=== PATIENT | male | born 1965 | race Caucasian/White ===

== ENCOUNTER 2016-05-14 18:30 | Emergency (ER) | payer SELFPAY ==
--- NOTE | ~2016-05-14 | ER ---
[facility] AGE[facility] 50 Y [address] ROOM: [place] [address] LOCATION: [facility] ADMIT DATE: 05/14/2016 ER/Outpatient Report DISCHARGE DATE: 05/14/2016 FAMILY PHYSICIAN: Physician, Unknown ATTENDING PHYSICIAN: Christoph Denny Admission date and time documented in the medical record. I saw the patient at 1845 hours. CHIEF COMPLAINT: Medical clearance for [facility] inpatient, acute alcohol intoxication, suicidal ideation, suicidal threats. HISTORY OF PRESENT ILLNESS: This patient is a 50-year-old male, who was brought to the emergency department by [facility] for medical clearance. The patient has been drinking alcohol, he is acutely intoxicated. He does have a history of alcohol abuse. The patient has been having suicidal ideation and suicidal threats. The patient has been an inpatient at [facility] in the past for similar problems. The patient denies any recent cold, coughs, flus, fever, chills, or sweats. No headache, eyes, ears, nose, throat, neck, or spine pain. No chest pain, shortness of breath. No abdominal pain, nausea, vomiting, diarrhea, or urinary frequency, urgency, or dysuria. No joint or muscle swelling, redness, or pain. No skin eruptions or rashes. Does have a history of suicidal ideation and suicidal threats. No other neuro problems, psych issues, endocrine problems. HOME MEDICATIONS: None. ALLERGIES: NONE. SOCIAL HISTORY: The patient smokes a pack a day. Drinks vodka daily. SIGNIFICANT PAST MEDICAL HISTORY: Tobacco abuse, alcohol abuse, suicidal threats, and ideation. OPERATIONS: Foot surgery. REVIEW OF SYSTEMS: All systems reviewed by me are negative with the exception of those discussed in the history of present illness. PAT[facility]'S NAME[facility] AGE: 50 Y [address] ROOM: [place] [address] LOCATION: [facility] ADMIT DATE: 05/14/2016 ER/Outpatient Report DISCHARGE DATE: 05/14/2016 FAMILY PHYSICIAN: Physician, Unknown ATTENDING PHYSICIAN: Christoph Denny PHYSICAL EXAMINATION: VITAL SIGNS: Temperature 97 tympanic, pulse 100, respirations 20, blood pressure 140/98, O2 saturation on room air is 96%. HEAD: Normocephalic. No abrasion, contusion, laceration, swelling of the scalp or face. EYES: Extraocular muscles intact. PERRL. Conjunctivae injected bilaterally. EARS: Clear TMs bilaterally. NOSE: Clear. THROAT: Clear. Mucous membranes moist. NECK: No nuchal rigidity. No thyromegaly or cervical adenopathy. LUNGS: Clear. Good air flow. No rales, rhonchi, or wheezes. HEART: Regular. Pulses are palpable. ABDOMEN: Soft, nondistended, nontender. Good bowel tones. No organomegaly or abnormal mass palpable. EXTREMITIES: No peripheral edema, cyanosis, or deformity. NEUROVASCULAR: Intact. The patient is acutely intoxicated. SKIN: Clear. LABORATORY DATA AND X-RAYS: Urine drug screen was negative. CMS was normal except for a low calcium of 8.3, elevated AST of 49. Medical blood alcohol was elevated at 0.334. Serum acetaminophen and salicylate levels were normal. TSH was 0.418. Urinalysis was clear. White count was 5100, 69 segs, 17 lymphs, 12 monos, hemoglobin 16.8, hematocrit 49.2, platelet count was 135,000. EMERGENCY DEPARTMENT COURSE: I did give the patient IV banana bag, IV normal saline fluids, along with Zofran 4 mg IV in the emergency department for nausea and vomiting. IMPRESSION: 1. Medical clearance for [facility] inpatient treatment. 2. Acute alcohol intoxication and alcohol abuse. 3. Suicide ideation, suicidal threats. PLAN: The patient was transferred by [facility] from [facility] to [facility] for inpatient treatment. CHRISTOPH DENNY MD SDS/modl PATIENT'S NAME: MARCELLE LACKEY [facility] AGE: 50 Y [address] ROOM: [place] [address] LOCATION: [facility] ADMIT DATE: 05/14/2016 ER/Outpatient Report DISCHARGE DATE: 05/14/2016 FAMILY PHYSICIAN: Physician, Unknown ATTENDING PHYSICIAN: Christoph Denny /[id number] d: 05/15/16 0149 t: 05/21/16 0613, OUTPATIENT REPORT
--- NOTE | ~2016-05-14 | PN ---
PATIENT'S NAME: MARCELLE LACKEY [facility] AGE: 50 Y [address] ROOM: [place] [address] LOCATION: [facility] ADMIT DATE: 05/14/2016 [facility] Progress Notes DISCHARGE DATE: 05/14/2016 FAMILY PHYSICIAN: PHYSICIAN, UNKNOWN ATTENDING PHYSICIAN: Christoph Denny DATE OF SERVICE: 05/18/2016 DATA COLLECTION: The patient was seen [id number] today. The case was discussed with our nursing staff for collateral information and coordination of care. INTERVAL HISTORY: Per nursing report, the patient is still AWAS and has been refusing medications. CD evaluation is still pending. During the interview, the patient states that he feels a little depressed and anxious only because of the fact that he is here in the hospital. He denies significant anger. Again, he admits that he has significant cravings for alcohol and he is willing to try a medication to help him with cravings. He again improvised that in the past he was using alcohol to self-medicate for depression and anxiety. He slept well last night and he has been eating well, has been attending groups. He has no significant physical complaints. His vital signs are good. MENTAL STATUS EXAMINATION: He is fully alert and oriented. No significant psychomotor agitation or retardation except for slight fine tremors to bilateral hands. He is cooperative and maintains good eye contact during the interview. His hygiene is fair and he is appropriately groomed. Speech is clear and coherent with normal rate and volume. Mood is a bit anxious. Affect is mood congruent. Thought process is logical and goal oriented. Content is devoid of suicidal or homicidal ideation. Denies hallucinations. No delusional thoughts. Memory and overall cognitive functioning are fair. Insight and judgment are fair. DIAGNOSES: 1. Major depressive disorder, recurrent without psychotic features. 2. Alcohol use disorder. PLAN: Discussed medication options for alcohol cravings. We settled on naltrexone. Possible side effects, risks, and benefits of treatment with naltrexone are discussed in the case that he should be able to afford the medication. Revealed his blood work results including AST and ALT. Discussed at length positive coping skills. We are still waiting for CD evaluation. We will [facility] AGE: 50 Y [address] ROOM: [place] [address] LOCATION: [facility] ADMIT DATE: 05/14/2016 [facility] Progress Notes DISCHARGE DATE: 05/14/2016 FAMILY PHYSICIAN: , UNKNOWN ATTENDING PHYSICIAN: Christoph Denny discontinue AWAS. EPC will be continued. We will continue work on discharge planning. MILLY PARKS/idalia /[id number] d: t: 05/18/16 1222, PROGRESS NOTES
[2016-05-14 19:11] LABS: BASOPHIL # 0.1 K/uL (0.0-0.2); EOSINOPHIL % 0.2 %; HEMATOCRIT 49.2 % (37.0-53.0); HEMOGLOBIN 16.8 g/dL (12.0-17.0); IMMATURE GRANULOCYTE % 0.2 %; LYMPHOCYTE # 0.9 K/uL (0.8-4.0); LYMPHOCYTE % 17.4 %; MCH 31.6 pg (27.0-34.0); MCHC 34.1 gm/dL (32.0-36.5); MCV 92.7 fl (83.0-98.0); MONOCYTE # 0.6 K/uL (0.0-1.0); MONOCYTE % 12.1 %; MPV 9.9 fl (9.4-12.4); NEUTROPHIL # (ANC) 3.5 K/uL (1.4-9.0); NEUTROPHIL % 69.1 %; NRBC % 0 /100WBC (0-0.00); RBC 5.31 M/uL (4.00-6.00); RDW-CV 14.3 % (11.9-14.6); WBC 5.1 K/uL (4.0-11.0)
[2016-05-14 19:21] LABS: BILIRUBIN URINE NEGATIVE (NEGATIVE); BLOOD URINE NEGATIVE /UL (NEGATIVE); GLUCOSE URINE NEGATIVE (NEGATIVE); KETONE URINE NEGATIVE (NEGATIVE); LEUKOCYTES URINE NEGATIVE /UL (NEGATIVE); NITRITE URINE NEGATIVE (NEGATIVE); PROTEIN URINE NEGATIVE (NEGATIVE); UROBILINOGEN URINE NORMAL (NORMAL)
[2016-05-14 19:22] LABS: PLATELET COUNT 135 K/uL (150-450)
[2016-05-14 19:24] LABS: COLOR URINE YELLOW (YELLOW); TURBIDITY URINE CLEAR (CLEAR)
[2016-05-14 19:32] LABS: ALBUMIN 3.5 gm/dL (3.5-5.0); ALK PHOS 64 IU/L (33-138); ALT 47 IU/L (12-78); ANION GAP 17.7 (10.0-19.0); AST 49 IU/L (10-40); BLOOD UREA NITROGEN 12 mg/dL (6-24); CALCIUM 8.3 mg/dL (8.5-10.5); CHLORIDE 106 mMol/L (96-110); CO2 24 mMol/L (22-32); CREATININE 0.9 mg/dL (0.6-1.3); ESTIMATED GFR (MDRD EQUATION) > 60; POTASSIUM 3.7 mMol/L (3.7-5.1); SODIUM 144 mMol/L (135-145); TOTAL PROTEIN 7.3 g/dL (6.0-8.4)
[2016-05-14 19:33] LABS: TOTAL BILIRUBIN 0.3 mg/dL (0.0-1.5)
[2016-05-14 19:41] LABS: AMPHETAMINE NEGATIVE (NEGATIVE); BARBITURATE NEGATIVE (NEGATIVE); COCAINE NEGATIVE (NEGATIVE); OPIATES NEGATIVE (NEGATIVE)
[2016-05-21] MEDS ORDERED: PROZAC20 MG PO (09:00)
[2016-05-21] MEDS ORDERED: TREXAN (REVIA)50 MG PO (09:18)
[2016-05-21] MEDS ORDERED: NICOTINE PATCH1 EAC1 PO (09:20)
[2016-09-07] MEDS ORDERED: REMERON 30 MG30 MG PO (14:04)
[2016-09-07] MEDS ORDERED: VISTARIL50 MG PO (14:06)
[2016-09-07] MEDS ORDERED: ACAMPROSATE CA333 MG PO (14:11)
== END 2016-05-14 20:08 | disposition disaster alternative care site (69) ==
LOC: GMED 18:30
PROVIDERS: Emergency Medicine
DX: F10.129 Alcohol abuse with intoxication, unspecified (principal); R45.851 Suicidal ideations; F17.210 Nicotine dependence, cigarettes, uncomplicated
CPT/HCPCS: G0480; J2405; J3411; J7030

== ENCOUNTER 2016-08-27 21:33 | Inpatient (IN) | payer SELFPAY ==
[~2016-08-27] VITALS: Ht 175.3 cm; Wt 81.3 kg
--- NOTE | ~2016-08-27 | DS ---
PATIENT'S NAME: MARCELLE LACKEY [facility] AGE: 50 Y [address] ROOM: [place] [address] LOCATION: [facility] ADMIT DATE: 08/27/2016 Discharge Summary DISCHARGE DATE: 08/31/2016 FAMILY PHYSICIAN: PHYSICIAN, YOLANDE ATTENDING PHYSICIAN: Manolo Sorto PRIMARY DIAGNOSES FOR THIS HOSPITALIZATION: 1. Alcohol withdrawal. 2. Acute alcohol intoxication. 3. Depression. 4. Suicidal ideations with a non-damaging attempt. SUMMARY OF HOSPITALIZATION: The patient is a 50-year-old male with a longstanding history of depression and alcohol abuse who broke up with his girlfriend several weeks prior to admission. He subsequently had suicidal ideations and even cut around his left cheek and jaw area without any significant injuries. He was admitted to [facility] with acute alcohol intoxication and withdrawal. He was placed under Emergent Protective Custody. He was admitted to the hospital with 24 hours one-to-one observation for self-harm. He was detoxified from alcohol with signs of [id number] withdrawal. He was placed on thiamine, folate, and multivitamins for his chronic alcoholism. His symptoms of withdrawal improved, but his depression continued to be profound. Today, the patient still has very mild withdrawal and is on a Librium taper. He volunteers no complaints. He will be transferred to [facility] under EPC. Time dedicated to this patient's encounter is 15 minutes. MD JOSEPH KANG/idalia /[id number] d: 09/01/16 0248 t: 09/07/16 2313, DISCHARGE SUMMARY
--- NOTE | ~2016-08-27 | HP ---
PATIENT'S NAME: MARCELLE LACKEY [facility] AGE: 50 Y [address] ROOM: [place] [address] LOCATION: [facility] ADMIT DATE: 08/27/2016 History & Physical DISCHARGE DATE: FAMILY PHYSICIAN: PHYSICIAN, UNKNOWN ATTENDING PHYSICIAN: YOSELIN MEDINA DATE OF SERVICE: CHIEF COMPLAINT: Suicidal ideation and attempt and also alcohol intoxication. HISTORY OF PRESENT ILLNESS: This is a 50-year-old male who has a longstanding history of alcohol, cigarette, and depression disorder. The story is that the patient recently broke up with his girlfriend about 5 weeks ago and he has become even more depressed. He already drinks alcohol everyday, but since he broke up with his girlfriend, he has been drinking more heavily for the last 5 weeks. He now drinks on a daily basis about 2 bottles of vodka. His last drink was last night. He says that about 2 days ago, he tried to use a knife to slit his own throat, but he was afraid to do so at the end; so, he only did some minor cuts around his left cheek/jaw area. Today, his children stopped by to see him and they found him drinking again so they called 911 to get him some help with his alcohol problem, the plan was to bring him to [facility] but just came here for medical clearance. Due to his alcohol intoxication and high risk of alcohol withdrawal, patient was admitted for further care. Currently patient denies suicidal thoughts or plans. REVIEW OF SYSTEMS: As mentioned in the history of present illness. All other systems were reviewed and they were negative except those mentioned in the history of present illness. PAST MEDICAL HISTORY: 1. Alcohol use disorder. 2. Cigarette use disorder. 3. Suicidal attempt and ideation in the past. 4. Depression. ALLERGIES: NONE, ACCORDING TO THE PATIENT. HOME MEDICATIONS: The patient says that he does not take any home medication. PAST SURGICAL HISTORY: PATIENT'S NAME: MARCELLE LACKEY [facility] AGE: 50 Y [address] ROOM: [address] [address] LOCATION: [facility] ADMIT DATE: 08/27/2016 History & Physical DISCHARGE DATE: FAMILY PHYSICIAN: PHYSICIAN, UNKNOWN ATTENDING PHYSICIAN: YOSELIN MEDINA Left ankle surgery in the past. FAMILY HISTORY: Father has some kind of heart problem, but he is not sure about the details. Mother has type 2 diabetes. SOCIAL HISTORY: The patient is active cigarette smoker about 2 packs per day for the last 35 years. The patient also drinks alcohol on a daily basis for many years about 2 bottles of vodka per day and last drink was last night. He denies any illegal drug use. PHYSICAL EXAMINATION: VITAL SIGNS: At the time of my dictation, temperature 98, heart rate 80, respirations 22, blood pressure 143/78, and saturation 97% on room air. GENERAL APPEARANCE: Alert and oriented x3. The patient is mildly restless moving around on the bed. HEENT: Pupils equally round and reactive to light. Extraocular muscles intact. Anicteric sclerae. Nasal turbinates are normal bilaterally. Moist oral mucosa. NECK: No JVD. CARDIOVASCULAR: Regular rate and rhythm. Normal S1, S2. No murmur, no rubs, no gallops. RESPIRATORY: Clear. No rhonchi, no wheezing, no crackles, no rales. ABDOMEN: Soft, nontender, nondistended, bowel sounds present, no hepatosplenomegaly. No mass. Bowel sounds present. EXTREMITIES: No edema in upper or lower extremities. SKIN: He does have some laceration on the left-side of the face around the left jaw area. It does not look infected. It is very superficial minor cut. NEUROLOGICAL: Grossly nonfocal except that the patient does have a positive asterixis. LABORATORY DATA: White blood cells 4.1, hemoglobin 14.9, hematocrit 41.5, and platelet 131. Glucose 132, BUN 10, creatinine 0.9, sodium 140, potassium 3.9, chloride 106, CO2 20, calcium 8.8, total protein 6.9, albumin 3.4, AST 68, ALT 109, alkaline phosphatase 59, total bilirubin 0.3, anion gap 17.9, and GFR more than 60. Urinalysis negative for UTI. Urine drug screen, all negative. Alcohol level 0.221. Tylenol level less than 2. Aspirin level less than 2.8. TSH 1.1. IMAGING STUDIES: None at the moment. ASSESSMENT AND PLAN: 1. Regarding his suicidal ideation and attempt: Consult Psychiatry. PATIENT'S NAME: MARCELLE LACKEY [facility] AGE: 50 Y [address] ROOM: [address] [place] [id number] LOCATION: [facility] ADMIT DATE: 08/27/2016 History & Physical DISCHARGE DATE: FAMILY PHYSICIAN: PHYSICIAN, UNKNOWN ATTENDING PHYSICIAN: YOSELIN MEDINA Suicidal precaution. One-on-one sitter in the room at all times. Further plan will depend on clinical course. 2. Regarding his alcohol intoxication: He is at high-risk of alcohol withdrawal, start him on CIWA protocol. Intravenous fluids with intravenous banana bag followed by normal saline. Further plan will depend on clinical course. 3. Regarding his transaminitis: This is alcohol induced in the setting of longstanding alcohol intake. I will trend the liver function test again tomorrow. The patient does not meet the criteria for alcoholic hepatitis and also does not meet the criteria for steroids use. His ALT is higher than AST. Continue supportive care as mentioned before for alcohol withdrawal. 4. Regarding his nicotine dependence: Start him on the nicotine patch 21 g transdermal daily. 5. Regarding his depression: Psychiatric consult tomorrow. 6. Regarding his lipase elevation: It is alcohol induced but not high enough to meet the definition of pancreatitis. Continue supportive care with iv fluids. 6. Deep vein thrombosis prophylaxis: He will be on Lovenox subcutaneous. 7. He is a DNR/DNI. Time spent in care on the day of admission 45 minutes, where 25 minutes was spent on counseling by going over the plan of care and also addressing all the questions and concerns of the patient to his satisfaction. The remainder of the time was spent on interview and physical examination and also on chart review. Further plan will depend on clinical course. YOSELIN MEDINA MD CC/colel /[id number] D: 509 T: 550 HISTORY & PHYSICAL
--- NOTE | ~2016-08-27 | ER ---
PATIENT'S NAME: MARCELLE LACKEY [facility] AGE: 50 Y [address] ROOM: [address] [place], [place] [address] [place] [facility] [place] DATE: 08/27/2016 ER/Outpatient Report DISCHARGE DATE: FAMILY PHYSICIAN: PHYSICIAN, UNKNOWN ATTENDING PHYSICIAN: YOSELIN MEDINA Admission date and time documented on the medical record. I saw the patient at 2140 hours. CHIEF COMPLAINT: Acute alcohol intoxication, alcohol abuse, medical clearance. HISTORY OF PRESENT ILLNESS: This patient is a 50-year-old male, who is brought to the emergency room by [facility] for medical clearance and EPC to [facility]. The patient is acutely intoxicated and has a history of chronic alcohol abuse. He had a 2.2 Breathalyzer. The patient did try to harm himself by scratching his facial cheek and chin. He does have obvious scratches, self-inflicted. The patient states he has insomnia and unable to sleep over the past few days. Denies any illicit drug use. He does smoke 2 to 3 three packs cigarettes a day. He drinks about 2 bottles of vodka a day. He denies suicidal ideation at this time, although has had suicidal threats and ideation in the past and looks like that he has been having these recently also. Denies any chest pain, shortness of breath, abdominal pain. No nausea, vomiting, diarrhea, or urinary complaints. No fall or trauma. No recent colds, coughs, flus, fever, chills, or sweats. No lightheadedness, dizziness, syncope, or near syncope. No joint or muscle swelling, redness, or pain. No skin eruptions or rash. No history of neuro changes or endocrine problems. He does have suicidal ideation and threats by history with his tobacco and alcohol abuse. REVIEW OF SYSTEMS: All systems reviewed by me are negative with the exception of those discussed in the history of present illness. PHYSICAL EXAMINATION: VITAL SIGNS: Temperature 98.3 tympanic, pulse 105, respirations 19, blood pressure 139/87, O2 saturation on room air is 96%. HEAD: Normocephalic. EYES, EARS, NOSE, THROAT: Clear. Breath smells of alcoholic beverage. Mucous membranes moist. NECK: No nuchal rigidity. No thyromegaly or cervical adenopathy. SPINE: Negative. LUNGS: Clear. Good air flow. No rales, rhonchi, or wheezes. HEART: Regular. Pulses are palpable. No chest wall or ribcage pain to palpation. PATIENT'S NAME: MARCELLE LACKEY [facility] AGE: 50 Y [address] ROOM: [address] [address] [place] [facility] [place] DATE: 08/27/2016 ER/Outpatient Report DISCHARGE DATE: FAMILY PHYSICIAN: PHYSICIAN, UNKNOWN ATTENDING PHYSICIAN: YOSELIN MEDINA ABDOMEN: Flat, soft, nondistended, nontender. Active bowel tones. No organomegaly or abnormal mass palpable. PELVIS: Stable. EXTREMITIES: No peripheral edema, cyanosis, or deformity. NEUROVASCULAR: Intact. SKIN: Clear. No skin eruptions or rash. The patient does have scratch tran on both facial cheeks and his chin. LABORATORY DATA AND X-RAYS: CBC showed a white count of 4100, 52 segs, 34 lymphs, 12 monos, 1 eo, 1 baso, hemoglobin is 14.9 with hematocrit of 41.5, platelet count is 131,000. CMS was normal except for a low CO2 content of 20, elevated glucose 132, elevated AST of 68, elevated ALT of 109. Medical blood alcohol was 0.221. Serum acetaminophen and salicylate levels were normal. TSH was 1.16. Urinalysis showed 0 to 2 whites, negative reds, rare epithelial cells, rare bacteria, 1+ mucus, 2+ amorphous material, negative nitrites on dipstick. Urine drug screen was negative. IMPRESSION: 1. Medical clearance, EPC to [facility]. 2. Acute alcohol intoxication and alcohol abuse. 3. Tobacco abuse. 4. Suicide ideation threats with self-inflicted scratches to his facial cheeks and chin. PLAN: Discussed the patient with Dr. Medina, hospitalist, who will admit the patient to the hospital for detox, and he will need inpatient treatment at [facility] possibly tomorrow. MD RADHA MEJIAS/idalia /[id number] d: 08/28/162 t: 08/28/16 1808, OUTPATIENT REPORT
[~2016-08-27 21:33] MED LIST: NICOTINE PATCH1 EAC1 PO; PROZAC20 MG PO; TREXAN (REVIA)50 MG PO
[2016-08-27 22:17] LABS: BILIRUBIN URINE NEGATIVE (NEGATIVE); BLOOD URINE NEGATIVE /UL (NEGATIVE); COLOR URINE YELLOW (YELLOW); GLUCOSE URINE NEGATIVE (NEGATIVE); KETONE URINE NEGATIVE (NEGATIVE); LEUKOCYTES URINE NEGATIVE /UL (NEGATIVE); NITRITE URINE NEGATIVE (NEGATIVE); PROTEIN URINE 15 mg/dL (NEGATIVE); TURBIDITY URINE CLEAR (CLEAR); UROBILINOGEN URINE NORMAL (NORMAL)
[2016-08-27 22:28] LABS: AMORPHOUS URINE 2+ (NEGATIVE); BACTERIA URINE RARE (NEGATIVE); EPITHELIAL URINE RARE #/HPF (NEGATIVE); HYALINE CAST URINE 0-2 #/LPF (NEGATIVE); MUCUS URINE 1+ (NEGATIVE); RBC URINE NEGATIVE #/HPF (NEGATIVE); WBC URINE 0-2 #/HPF (NEGATIVE)
[2016-08-27 22:35] LABS: BARBITURATE NEGATIVE (NEGATIVE); COCAINE NEGATIVE (NEGATIVE); OPIATES NEGATIVE (NEGATIVE)
[2016-08-27 22:37] LABS: BASOPHIL % 0.5 %; EOSINOPHIL % 0.5 %; HEMATOCRIT 41.5 % (37.0-53.0); HEMOGLOBIN 14.9 g/dL (12.0-17.0); IMMATURE GRANULOCYTE % 0.7 %; LYMPHOCYTE # 1.4 K/uL (0.8-4.0); LYMPHOCYTE % 34.2 %; MCH 32.3 pg (27.0-34.0); MCHC 35.9 gm/dL (32.0-36.5); MONOCYTE # 0.5 K/uL (0.0-1.0); MONOCYTE % 12.3 %; MPV 9.6 fl (9.4-12.4); NEUTROPHIL # (ANC) 2.1 K/uL (1.4-9.0); NEUTROPHIL % 51.8 %; NRBC % 0 /100WBC (0-0.00); PLATELET COUNT 131 K/uL (150-450); RBC 4.61 M/uL (4.00-6.00); RDW-CV 14.5 % (11.9-14.6); WBC 4.1 K/uL (4.0-11.0)
[2016-08-27 22:37] LABS: AMPHETAMINE NEGATIVE (NEGATIVE)
[2016-08-27 22:57] LABS: ALBUMIN 3.4 gm/dL (3.5-5.0); ALK PHOS 59 IU/L (33-138); ALT 109 IU/L (12-78); ANION GAP 17.9 (10.0-19.0); AST 68 IU/L (10-40); BLOOD UREA NITROGEN 10 mg/dL (6-24); CALCIUM 8.8 mg/dL (8.5-10.5); CHLORIDE 106 mMol/L (96-110); CO2 20 mMol/L (22-32); CREATININE 0.9 mg/dL (0.6-1.3); ESTIMATED GFR (MDRD EQUATION) > 60; POTASSIUM 3.9 mMol/L (3.7-5.1); SODIUM 140 mMol/L (135-145); TOTAL BILIRUBIN 0.3 mg/dL (0.0-1.5); TOTAL PROTEIN 6.9 g/dL (6.0-8.4)
--- NOTE | 2016-08-28 03:33 | NUR ---
Admission: Pt admitted from ER around 0030 after brought in from [facility]. Per ER report pt was attempting to kill himself with knife( has small cuts on neck and chin. [facility] was called to home and is EPC. pt states he drinks 2 bottles of voldka a day with 6- 12 pack. he has gotten sober in the past and was recently at [facility], but has been drinking everyday for a month or so. 2-3 pack day smoker. Hx of recreational drug use. pt has anxiety and depression which he states is why he drinks. states when he sober he is unable to sleep due to his anxiety. Hx. of GERD, joint stiffness, migrains. pt wants to be DNR. order on chart. q4hr VS. Restrict to room. ok for phone and TV, no visitors MD needs to be notified. Asperation and fall precautions. Bannana bag x1 then NS @ 100 ML/HR. IV left AC. pt refused End tital.Valium given upon admission and 2 mG given x1 per CIWA score. Pt is Inpatient. pt Neauseated Zofran given X1. psych consult in am.
[2016-08-28 04:26] LABS: ALBUMIN 3.2 gm/dL (3.5-5.0); ALK PHOS 55 IU/L (33-138); ALT 97 IU/L (12-78); ANION GAP 15.2 (10.0-19.0); AST 53 IU/L (10-40); BLOOD UREA NITROGEN 10 mg/dL (6-24); CALCIUM 8.7 mg/dL (8.5-10.5); CHLORIDE 104 mMol/L (96-110); CO2 23 mMol/L (22-32); CREATININE 0.8 mg/dL (0.6-1.3); ESTIMATED GFR (MDRD EQUATION) > 60; POTASSIUM 4.2 mMol/L (3.7-5.1); SODIUM 138 mMol/L (135-145); TOTAL BILIRUBIN 0.3 mg/dL (0.0-1.5); TOTAL PROTEIN 6.5 g/dL (6.0-8.4)
--- NOTE | 2016-08-28 11:00 | NUR ---
SPOKE WITH Sophia NUNEZ SHE ANTICIIPATES THAT PATIENT WILL BE READY FOR TRANSFERE TO [facility] TOMORROW. HE IS A EPC AND WILL GO TO [facility] ONCE MEDICALLY STABLE.
--- NOTE | 2016-08-28 12:18 | NUR ---
PT SCREENED D/T MST. PER RECORD, ABOUT 1.6% WT LOSS IN 3.5 MONTHS, NOT SIGNIFICANT. ALCOHOL ABUSE. ATTEMPTED TO KILL HIMSELF, PSY CONSULT TODAY/TOMORROW. INTAKE 75-100% X1 MEAL NOTED. PT'S APPETITE WAS GOOD LAST ADMIT. NO NUTRITION DIAGNOSIS AT THIS TIME. WILL FOLLOW ORAL INTAKE IN 5-7 DAYS.
--- NOTE | 2016-08-28 17:12 | NUR ---
Significant Event:Is A/O.Is up with standby assist.Is pretty shakey at times but better than has been.IV in Lt.anticubital.Voiding ok & had mod loose stool.Eating fairly well.Taking flds ok.Alittle queezy at times.Still kind of hypertensive.Had 1 mg of ativan last at 1705.Is pleasant & cooperative.Would rather go somewhere else than [facility].Has some anxiety.No pain. Follow up:
--- NOTE | 2016-08-29 04:18 | NUR ---
Pt. alert and oriented. RA. VSS. No PRN BP given this shift. Gave 1mg ativan at 2100. Did not qualify for ativan at 0100 CIWA time but pt. wanted benydryl. Arsenio at times but SBA. 1:1 supervision. IV to L AC - saline locked. Drinks fluids well. 2 daughters and 1 son here last evening to visit - ok'd by hospitalist. No pain. Daughter would like to get referring started on a different psychiatric facility - info left on board in room. Did not sleep at all. Cooperative with cares.
[2016-08-29 05:11] LABS: ALBUMIN 3.6 gm/dL (3.5-5.0); ALK PHOS 61 IU/L (33-138); ALT 92 IU/L (12-78); ANION GAP 12.9 (10.0-19.0); AST 52 IU/L (10-40); BLOOD UREA NITROGEN 10 mg/dL (6-24); CALCIUM 9.4 mg/dL (8.5-10.5); CHLORIDE 103 mMol/L (96-110); CO2 24 mMol/L (22-32); CREATININE 0.8 mg/dL (0.6-1.3); ESTIMATED GFR (MDRD EQUATION) > 60; POTASSIUM 3.9 mMol/L (3.7-5.1); SODIUM 136 mMol/L (135-145); TOTAL BILIRUBIN 0.7 mg/dL (0.0-1.5); TOTAL PROTEIN 7.3 g/dL (6.0-8.4)
--- NOTE | 2016-08-29 10:29 | NUR ---
SPOKE TO Sophia NUNEZ SHE INFORMS ME THAT PATIENT IS NOT MEDICALLY STABLE TO GO TO AT THIS TIME BUT HOPES HE CAN GO TOMORROW. I NOTIFIED [facility] AND SPOKE TO ALISTAIR IN THE ACCESS CENTER AND GAVE HER UPDATE.
--- NOTE | 2016-08-29 13:30 | NUR ---
CWA scoring not done at 1330 as was sleeping soundly.
--- NOTE | 2016-08-29 16:39 | NUR ---
Significant Event:Is A/O.Was still pretty shakey today along with some sweating.No N/V.No QUINTEROS.Alittle unsteady on feet.Probably leaving tomorrow.Is very saddened & upset he has to go to [facility] as he wanted to go to [place].Has been up.Slept quite a bit this afternoon.Gave Ativan 1mg po at 0935 a Follow up:
--- NOTE | 2016-08-30 04:10 | NUR ---
Pt. alert and oriented. VSS. BP lowest it has been since admission. Remains 1:1 observation. IV L) Forearm - saline locked. Off and on sleep tonight. Librium started yesterday. No PRN meds given. Not happy he has to got [facility]. Most likely will d/c to [facility] today. Continues to be on CIWA scoring. Son and daughters here last evening. Cooperative with cares.
--- NOTE | 2016-08-30 16:43 | NUR ---
Significant event: Cooperative with cares. Drinking water good, voiding good. Reports he is not happy about going to [facility] but has accepted it. No tremors or sweating noted. Has slept this am and this afternoon, wakes easily. Plan is for transfer to [facility] tomorrow.
--- NOTE | 2016-08-31 02:24 | NUR ---
Significant Event: PT AO. VSS,AFEBRILE ON RA. Q4HR VITALS. IV SALINE LOCKED TO L AC. CIWAA SCORE HAVE BEEN <8. PT DENIES SUICIDAL THOUGHTS AT THIS TIME, DENIES PLAN. REMAINS 1:1 OBSERVATION. PT HAD PERIOD OF BEING UPSET WHEN WANTING TO SHAVE AND NURSE ONLY ALLOWED AN ELECTRIC RAZOR WHEN PT WANTED A STRAIGHT BLADE. NURSE ABLE TO EXPLAIN REASONING AND PT CALMED. PT REPORTS BEING VERY ANXIOUS ABOUT GOING TO [facility] IN THE AM. HAS NOT SLEPT MUCH THIS SHIFT. Follow up: 1:1, TO [facility] IN AM?, CIWAA Q4HR
--- NOTE | 2016-08-31 13:13 | NUR ---
Discharge summary: Patient is alert and oriented. VSS. on room air. IV removed with no complications. Patient is EPC with [facility]. Pt was transported to [facility] by [facility].
[2016-08-31] MEDS ORDERED: LIBRIUM25 MG PO (13:18)
[2016-08-31] MEDS ORDERED: FOLIC ACID1 MG PO (13:19)
[2016-08-31] MEDS ORDERED: MAGNESIUM400 M1 PO (13:21)
[2016-08-31] MEDS ORDERED: THERAGRAN-M1 TAB PO (13:43)
[2016-08-31] MEDS ORDERED: NICOTINE PATCH1 EAC2 TRANS (13:45)
[2016-08-31] MEDS ORDERED: THIAMINE HCL100 MG PO (13:51)
[2016-09-07] MEDS ORDERED: REMERON 30 MG30 MG PO (14:04)
[2016-09-07] MEDS ORDERED: VISTARIL50 MG PO (14:06)
[2016-09-07] MEDS ORDERED: ACAMPROSATE CA333 MG PO (14:11)
== END 2016-08-31 12:25 | disposition other institution (70) | DRG 897 ==
LOC: GMED 21:33 → GMSU 23:40
PROVIDERS: Emergency Medicine; Physician Assistant; ADMIT Internal Medicine
DX: F10.239 Alcohol dependence with withdrawal, unspecified (principal); F32.9 Major depressive disorder, single episode, unspecified; F10.229 Alcohol dependence with intoxication, unspecified; F17.210 Nicotine dependence, cigarettes, uncomplicated; S01.412A Laceration without foreign body of left cheek and temporomandibular area, initial encounter; X78.9XXA Intentional self-harm by unspecified sharp object, initial encounter; Z91.5 Personal history of self-harm
CPT/HCPCS: A9270; G0480; J1650; J2060; J2405; J3411; J3475; J7030